=== PATIENT | female | born 1985 | race Caucasian/White ===

== ENCOUNTER 2017-03-12 18:09 | Emergency (ER) | payer SELFPAY ==
[~2017-03-12] VITALS: Ht 165.1 cm; Wt 130.8 kg
[2017-03-12 18:12] VITALS: BP 127/71
== END 2017-03-12 19:12 | disposition home or self-care (01) ==
LOC: ED 19:00
DX: H66.91 Otitis media, unspecified, right ear (principal)
CPT/HCPCS: 99283

== ENCOUNTER 2020-12-26 14:32 | Inpatient (IN) | payer OTHER ==
[2020-12-26] VITALS (8 sets, daily range): BP systolic 102–122; BP diastolic 49–74
[~2020-12-26] VITALS: Ht 165.1 cm; Wt 132.6 kg
--- NOTE | 2020-12-26 15:53 | NUR ---
certified coder: Pt ambulatory to room from lobby at this time.
[2020-12-26 15:57] LABS: BASOPHILS % (AUTO) 0 % (0-1); EOSINOPHILS % (AUTO) 0 % (1-7); LYMPHOCYTES % (AUTO) 21 % (22-44); MEAN CORPUSCULAR HEMOGLOBIN 16.6 pg (27.0-34.8); MEAN PLATELET VOLUME 6.3 fL (7.4-10.4); MONOCYTES % (AUTO) 5 % (2-9); NEUTROPHILS % (AUTO) 74 % (42-75); PLATELET COUNT 594 x10^3/uL (130-400); RED BLOOD COUNT 2.76 x10^6/uL (3.82-5.3); RED CELL DISTRIBUTION WIDTH 19.7 % (9.6-15.2)
[2020-12-26 16:06] LABS: ALBUMIN 2.5 g/dL (3.4-5.0); ANION GAP 4 mmol/L (5-15); CALCIUM 7.9 mg/dL (8.5-10.1); CHLORIDE 112 mmol/L (98-107)
[2020-12-26 16:07] LABS: CREATININE 0.89 mg/dL (0.55-1.02)
[2020-12-26 16:12] LABS: MEAN CORPUSCULAR HGB CONC 28.1 g/dL (32.4-35.8)
--- NOTE | 2020-12-26 16:15 | NUR ---
PT BIB FRIEND VIA POV D/T SOB WITH EXERTION & "CAN'T SMELL ANYTHING" X4 DAYS. PT STATES SHE HAS NOT BEEN VACCINATED FOR COVID. PT STATES HX OF ASTHMA AND SHE FEELS HER BREATHING HAS BEEN WORSE WITH THE SMOKE IN THE AREA. PT RESTING IN [facility], MONITORING IN PLACE, [facility] AT THIS TIME, TM.
[2020-12-26 16:33] LABS: ANISOCYTOSIS 1+; HYPOCHROMIA 2+; MICROCYTOSIS 2+; OVALOCYTES 1+; POLYCHROMASIA 1+
[2020-12-26 16:34] LABS: <PLATELET ESTIMATE> INCREASED; <PLT MORPHOLOGY> NORMAL PLT MORPH; TEAR DROPS 1+
[2020-12-26] MEDS ORDERED: PANTOPRAZOLE 40 MG IV IVPush ONE (17:00)
[2020-12-26] MEDS ORDERED: ONDANSETRON 2MG/ML, 2ML IVPush ONE (18:00)
[2020-12-26] MEDS ORDERED: MORPHINE SULFATE 4 MG/ML, 1ML IVPush PRN (18:00)
[2020-12-26 18:19] LABS: PROTHROMBIN TIME 10.7 Seconds (9.6-11.5)
[2020-12-26] MEDS ORDERED: PANTOPRAZOLE 40 MG IV ONE (18:27)
[2020-12-26] MEDS ORDERED: BISACODYL 10 MG SUPP PR PRN (19:30)
[2020-12-26] MEDS ORDERED: ONDANSETRON 2MG/ML, 2ML IVPush PRN (19:30)
[2020-12-26] MEDS ORDERED: ACETAMINOPHEN 325 MG TABLET PO PRN (19:30)
[2020-12-26] MEDS ORDERED: ONDANSETRON ODT 4 MG PO PRN (19:30)
[2020-12-26] MEDS ORDERED: POLYETHYLENE GLYCOL 17 GM PACKET PO PRN (19:30)
[2020-12-26] MEDS ORDERED: GUAIFENESIN/DM 200-20MG, 10ML UDC PO PRN (19:30)
[2020-12-26] MEDS ORDERED: MELATONIN 5 MG TABLET PO PRN (19:30)
[2020-12-26] MEDS ORDERED: hydrALAzine 20 MG/ML, 1ML IVPush PRN (19:30)
[2020-12-26] MEDS ORDERED: LORazepam 0.5MG TABLET PO PRN (20:00)
[2020-12-26] MEDS: PANTOPRAZOLE 40 MG IV IVPush SCH (20:38)
[2020-12-26 22:58] LABS: MICROSCOPIC INDICATED
[2020-12-27] VITALS (24 sets, daily range): BP systolic 101–134; BP diastolic 57–77
[2020-12-27 06:03] LABS: BASOPHILS % (AUTO) 1 % (0-1); EOSINOPHILS % (AUTO) 0 % (1-7); LYMPHOCYTES % (AUTO) 25 % (22-44); MEAN CORPUSCULAR HEMOGLOBIN 19.9 pg (27.0-34.8); MEAN CORPUSCULAR HGB CONC 30.1 g/dL (32.4-35.8); MEAN PLATELET VOLUME 6.2 fL (7.4-10.4); MONOCYTES % (AUTO) 5 % (2-9); NEUTROPHILS % (AUTO) 70 % (42-75); PLATELET COUNT 500 x10^3/uL (130-400); RED BLOOD COUNT 3.09 x10^6/uL (3.82-5.3); RED CELL DISTRIBUTION WIDTH 26.4 % (9.6-15.2)
[2020-12-27 06:16] LABS: CALCIUM 7.8 mg/dL (8.5-10.1); CHLORIDE 110 mmol/L (98-107)
[2020-12-27 06:29] LABS: ALANINE AMINOTRANSFERASE 12 U/L (12-78); ALBUMIN 2.3 g/dL (3.4-5.0); ALKALINE PHOSPHATASE 78 U/L (45-117); ANION GAP 5 mmol/L (5-15); BILIRUBIN,TOTAL 0.6 mg/dL (0.2-1.0); CHOL/HDL RATIO 3.7; CHOLESTEROL, TOTAL 100 mg/dL (140-239); CREATININE 0.55 mg/dL (0.55-1.02); HDL CHOL % 27 % (28-40); HDL CHOLESTEROL (DIRECT) 27 mg/dL (40-60); TOTAL PROTEIN 6.2 g/dL (6.4-8.2); TRIGLYCERIDES 151 mg/dL (50-200); VLDL CHOLESTEROL 30 mg/dL (0-25)
[2020-12-27 06:30] LABS: FREE T4 (FREE THYROXINE) 1.18 ng/dL (0.76-1.46); LDL CHOLESTEROL,CALCULATED 43 mg/dL (54-169); LDL/HDL RATIO 1.6 (0.5-3.0)
[2020-12-27 06:34] LABS: ANISOCYTOSIS 2+; MICROCYTOSIS 1+
[2020-12-27 06:35] LABS: <PLATELET ESTIMATE> INCREASED; <PLT MORPHOLOGY> NORMAL PLT MORPH; HYPOCHROMIA 2+; OVALOCYTES 2+
[2020-12-27] MEDS: PANTOPRAZOLE 40 MG IV IVPush SCH ×2 (07:30→22:13)
[2020-12-27] MEDS: SENNA/DOCUSATE TABLET PO SCH (08:54)
[2020-12-27] MEDS: CEFTRIAXONE 2 GM in DEXTROSE 5% 50 ML IVPB SCH (11:43)
[2020-12-27] MEDS ORDERED: MIDAZOLAM 1 MG/ML, 2ML ONE (12:27)
[2020-12-27] MEDS ORDERED: PROPOFOL 10 MG/ML, 20ML ONE (12:27)
[2020-12-27] MEDS ORDERED: SUCCINYLCHOLINE 20 MG/ML, 10ML ONE (12:27)
[2020-12-27] MEDS ORDERED: ONDANSETRON 2MG/ML, 2ML IVPush PRN (13:00)
[2020-12-27] MEDS ORDERED: FENTANYL PF 100 MCG/2ML IV PRN (13:00)
[2020-12-27] MEDS ORDERED: OXYcodone 5 MG/5 ML ORAL.SOL UDC PO PRN (13:00)
[2020-12-27 14:38] LABS: ANION GAP 4 mmol/L (5-15); CALCIUM 7.9 mg/dL (8.5-10.1); CHLORIDE 110 mmol/L (98-107); CREATININE 0.55 mg/dL (0.55-1.02)
[2020-12-27] MEDS ORDERED: OMNIPAQUE 350 MG/ML, 150 ML BOTTLE ONE (15:43)
[2020-12-27 15:58] LABS: OCCULT BLOOD POSITIVE (NEGATIVE)
[2020-12-27] MEDS ORDERED: DO NOT GIVE HEPARIN BOLUS MC PRN (17:00)
[2020-12-27] MEDS: FUROSEMIDE 20 MG/2 ML IV SCH ×2 (17:00→22:52)
[2020-12-27 17:24] LABS: D-DIMER 1.61 ug/mlFEU (0.00-0.52)
[2020-12-27] MEDS ORDERED: GLYCERIN ADULT SUPP PR ONE (17:30)
[2020-12-27] MEDS: ASCORBIC ACID 500 MG TABLET PO SCH ×2 (17:53→21:27)
[2020-12-27] MEDS: SUCRALFATE 1 GM TABLET PO SCH ×2 (17:53→21:28)
[2020-12-27] MEDS: HEPARIN 25,000 UNITS/250ML PMX 250 ML IV PRN (21:10)
[2020-12-27] MEDS: DOXYCYCLINE 100MG TABLET PO SCH (21:28)
[2020-12-27] MEDS: THIAMINE 100MG TABLET PO SCH (21:29)
[2020-12-27] MEDS: MELATONIN 5 MG TABLET PO SCH (21:31)
[2020-12-28] VITALS (9 sets, daily range): BP systolic 108–139; BP diastolic 71–84
[2020-12-28 04:29] LABS: BASOPHILS % (AUTO) 0 % (0-1); EOSINOPHILS % (AUTO) 0 % (1-7); LYMPHOCYTES % (AUTO) 28 % (22-44); MEAN CORPUSCULAR HEMOGLOBIN 22.6 pg (27.0-34.8); MEAN CORPUSCULAR HGB CONC 31.9 g/dL (32.4-35.8); MEAN PLATELET VOLUME 6.2 fL (7.4-10.4); MONOCYTES % (AUTO) 6 % (2-9); NEUTROPHILS % (AUTO) 66 % (42-75); PLATELET COUNT 435 x10^3/uL (130-400); RED BLOOD COUNT 4.38 x10^6/uL (3.82-5.3); RED CELL DISTRIBUTION WIDTH 28.3 % (9.6-15.2)
[2020-12-28 04:30] LABS: HCT (SEDRATE) 30.3 % (34.6-47.8)
[2020-12-28 04:46] LABS: C-REACTIVE PROTEIN, QUANT 1.8 mg/dL (0.02-0.49)
[2020-12-28] MEDS: FUROSEMIDE 20 MG/2 ML IV SCH (05:59)
[2020-12-28] MEDS: SUCRALFATE 1 GM TABLET PO SCH ×4 (05:59→21:05)
[2020-12-28] MEDS ORDERED: REMDESIVIR 200 MG in SODIUM CHLORIDE 0.9% 250 ML IVPB ONE (06:30)
[2020-12-28] MEDS: DEXAMETHASONE 4 MG/ML, 1ML IVPush SCH (08:20)
[2020-12-28] MEDS: PANTOPRAZOLE 40 MG IV IVPush SCH ×2 (08:20→21:05)
[2020-12-28] MEDS: SENNA/DOCUSATE TABLET PO SCH (08:20)
[2020-12-28] MEDS: CHOLECALCIFEROL 1,000 UNIT TABLET PO SCH (08:21)
[2020-12-28] MEDS: THIAMINE 100MG TABLET PO SCH ×2 (08:21→21:05)
[2020-12-28] MEDS: ZINC SULFATE 220 MG CAPSULE PO SCH (08:21)
[2020-12-28] MEDS: DOXYCYCLINE 100MG TABLET PO SCH ×2 (08:21→21:05)
[2020-12-28] MEDS: ASCORBIC ACID 500 MG TABLET PO SCH ×3 (08:21→21:05)
[2020-12-28] MEDS: CEFTRIAXONE 2 GM in DEXTROSE 5% 50 ML IVPB SCH (11:55)
[2020-12-28 19:29] LABS: OCCULT BLOOD NEGATIVE (NEGATIVE)
[2020-12-28] MEDS: MELATONIN 5 MG TABLET PO SCH (21:05)
[2020-12-28] MEDS: HEPARIN 25,000 UNITS/250ML PMX 250 ML IV PRN (21:25)
[2020-12-29 01:19] VITALS: BP 118/76
[2020-12-29 02:50] LABS: ALBUMIN 2.4 g/dL (3.4-5.0); BASOPHILS % (AUTO) 0 % (0-1); CHLORIDE 108 mmol/L (98-107); EOSINOPHILS % (AUTO) 0 % (1-7); LYMPHOCYTES % (AUTO) 22 % (22-44); MEAN CORPUSCULAR HEMOGLOBIN 22.8 pg (27.0-34.8); MEAN PLATELET VOLUME 6.7 fL (7.4-10.4); MONOCYTES % (AUTO) 6 % (2-9); NEUTROPHILS % (AUTO) 71 % (42-75); PLATELET COUNT 474 x10^3/uL (130-400); RED BLOOD COUNT 4.37 x10^6/uL (3.82-5.3); RED CELL DISTRIBUTION WIDTH 28.3 % (9.6-15.2)
[2020-12-29 02:53] LABS: ALANINE AMINOTRANSFERASE 16 U/L (12-78); ALKALINE PHOSPHATASE 105 U/L (45-117); ANION GAP 8 mmol/L (5-15); BILIRUBIN,TOTAL 0.5 mg/dL (0.2-1.0); CALCIUM 8.2 mg/dL (8.5-10.1); TOTAL PROTEIN 7.2 g/dL (6.4-8.2)
[2020-12-29 02:54] LABS: D-DIMER 1.81 ug/mlFEU (0.00-0.52); INTERNATIONAL NORMALIZED RATIO 1.02 (0.93-1.1); PROTHROMBIN TIME 10.9 Seconds (9.6-11.5)
[2020-12-29 03:22] LABS: ANISOCYTOSIS 1+; MICROCYTOSIS 1+
[2020-12-29 03:23] LABS: <PLATELET ESTIMATE> INCREASED; <PLT MORPHOLOGY> NORMAL PLT MORPH; HYPOCHROMIA 2+; OVALOCYTES 2+
[2020-12-29] MEDS: SUCRALFATE 1 GM TABLET PO SCH ×4 (07:22→21:26)
[2020-12-29] MEDS: REMDESIVIR 100 MG in SODIUM CHLORIDE 0.9% 250 ML IVPB SCH (07:22)
[2020-12-29 08:44] VITALS: BP 116/75
[2020-12-29] MEDS: PANTOPRAZOLE 40 MG IV IVPush SCH ×2 (09:01→21:27)
[2020-12-29] MEDS: ZINC SULFATE 220 MG CAPSULE PO SCH (09:01)
[2020-12-29] MEDS: DEXAMETHASONE 4 MG/ML, 1ML IVPush SCH (09:01)
[2020-12-29] MEDS: ASCORBIC ACID 500 MG TABLET PO SCH ×3 (09:01→21:26)
[2020-12-29] MEDS: SENNA/DOCUSATE TABLET PO SCH (09:02)
[2020-12-29] MEDS: THIAMINE 100MG TABLET PO SCH ×2 (09:02→21:26)
[2020-12-29] MEDS: DOXYCYCLINE 100MG TABLET PO SCH ×2 (09:02→21:26)
[2020-12-29] MEDS: CHOLECALCIFEROL 1,000 UNIT TABLET PO SCH (09:02)
[2020-12-29] MEDS: CEFTRIAXONE 2 GM in DEXTROSE 5% 50 ML IVPB SCH (11:21)
[2020-12-29] MEDS: HEPARIN 25,000 UNITS/250ML PMX 250 ML IV PRN ×2 (12:19→23:01)
[2020-12-29 13:22] VITALS: BP 127/81
[2020-12-29 20:19] VITALS: BP 117/76
[2020-12-29 21:07] LABS: OCCULT BLOOD NEGATIVE (NEGATIVE)
[2020-12-29] MEDS: MELATONIN 5 MG TABLET PO SCH (21:26)
[2020-12-30 01:22] VITALS: BP 122/78
[2020-12-30] MEDS: SUCRALFATE 1 GM TABLET PO SCH ×4 (06:22→20:24)
[2020-12-30] MEDS: REMDESIVIR 100 MG in SODIUM CHLORIDE 0.9% 250 ML IVPB SCH (06:22)
[2020-12-30 06:37] VITALS: BP 101/65
[2020-12-30 06:45] LABS: ALBUMIN 2.2 g/dL (3.4-5.0); ANION GAP 5 mmol/L (5-15); CALCIUM 8.3 mg/dL (8.5-10.1); CHLORIDE 111 mmol/L (98-107)
[2020-12-30 06:48] LABS: ALANINE AMINOTRANSFERASE 16 U/L (12-78); ALKALINE PHOSPHATASE 98 U/L (45-117); BILIRUBIN,TOTAL 0.4 mg/dL (0.2-1.0); CREATININE 0.54 mg/dL (0.55-1.02); TOTAL PROTEIN 6.3 g/dL (6.4-8.2)
[2020-12-30 07:35] LABS: BASOPHILS % (AUTO) 0 % (0-1); EOSINOPHILS % (AUTO) 0 % (1-7); LYMPHOCYTES % (AUTO) 32 % (22-44); MEAN CORPUSCULAR HEMOGLOBIN 23.1 pg (27.0-34.8); MEAN CORPUSCULAR HGB CONC 31.7 g/dL (32.4-35.8); MEAN PLATELET VOLUME 6.9 fL (7.4-10.4); MONOCYTES % (AUTO) 8 % (2-9); NEUTROPHILS % (AUTO) 60 % (42-75); PLATELET COUNT 501 x10^3/uL (130-400); RED CELL DISTRIBUTION WIDTH 28.7 % (9.6-15.2)
[2020-12-30 07:42] LABS: HCT (SEDRATE) 29.9 % (34.6-47.8)
[2020-12-30] MEDS: SENNA/DOCUSATE TABLET PO SCH (09:00)
[2020-12-30] MEDS: ASCORBIC ACID 500 MG TABLET PO SCH ×3 (09:19→20:25)
[2020-12-30] MEDS: PANTOPRAZOLE 40 MG IV IVPush SCH ×2 (09:19→20:25)
[2020-12-30] MEDS: DEXAMETHASONE 4 MG/ML, 1ML IVPush SCH (09:19)
[2020-12-30] MEDS: CHOLECALCIFEROL 1,000 UNIT TABLET PO SCH (09:20)
[2020-12-30] MEDS: THIAMINE 100MG TABLET PO SCH ×2 (09:20→20:24)
[2020-12-30] MEDS: DOXYCYCLINE 100MG TABLET PO SCH ×2 (09:20→20:24)
[2020-12-30] MEDS: ZINC SULFATE 220 MG CAPSULE PO SCH (09:20)
[2020-12-30] MEDS: APIXABAN 5 MG TABLET PO SCH ×2 (11:50→20:24)
[2020-12-30] MEDS: CEFTRIAXONE 2 GM in DEXTROSE 5% 50 ML IVPB SCH (11:50)
[2020-12-30 14:00] VITALS: BP 113/73
[2020-12-30 20:10] VITALS: BP 113/65
[2020-12-30] MEDS: MELATONIN 5 MG TABLET PO SCH (20:25)
[2020-12-31 00:09] VITALS: BP 121/71
[2020-12-31 05:45] LABS: HCT (SEDRATE) 31.9 % (34.6-47.8)
[2020-12-31 05:57] LABS: ALBUMIN 2.3 g/dL (3.4-5.0); ANION GAP 6 mmol/L (5-15); BASOPHILS % (AUTO) 1 % (0-1); C-REACTIVE PROTEIN, QUANT 0.45 mg/dL (0.02-0.49); CALCIUM 8.6 mg/dL (8.5-10.1); CHLORIDE 112 mmol/L (98-107); EOSINOPHILS % (AUTO) 2 % (1-7); LYMPHOCYTES % (AUTO) 28 % (22-44); MEAN CORPUSCULAR HEMOGLOBIN 22.5 pg (27.0-34.8); MEAN CORPUSCULAR HGB CONC 30.6 g/dL (32.4-35.8); MEAN PLATELET VOLUME 6.6 fL (7.4-10.4); MONOCYTES % (AUTO) 7 % (2-9); NEUTROPHILS % (AUTO) 62 % (42-75); PLATELET COUNT 499 x10^3/uL (130-400); RED BLOOD COUNT 4.39 x10^6/uL (3.82-5.3)
[2020-12-31 06:01] LABS: ALANINE AMINOTRANSFERASE 21 U/L (12-78); ALKALINE PHOSPHATASE 98 U/L (45-117); BILIRUBIN,TOTAL 0.4 mg/dL (0.2-1.0); TOTAL PROTEIN 6.5 g/dL (6.4-8.2)
[2020-12-31] MEDS: REMDESIVIR 100 MG in SODIUM CHLORIDE 0.9% 250 ML IVPB SCH (06:28)
[2020-12-31] MEDS: SUCRALFATE 1 GM TABLET PO SCH ×4 (06:28→21:54)
[2020-12-31 07:06] VITALS: BP 124/79
[2020-12-31] MEDS: DEXAMETHASONE 4 MG/ML, 1ML IVPush SCH (08:57)
[2020-12-31] MEDS: CHOLECALCIFEROL 1,000 UNIT TABLET PO SCH (08:58)
[2020-12-31] MEDS: APIXABAN 5 MG TABLET PO SCH ×2 (08:58→21:53)
[2020-12-31] MEDS: PANTOPRAZOLE 40 MG IV IVPush SCH ×2 (08:58→21:53)
[2020-12-31] MEDS: ASCORBIC ACID 500 MG TABLET PO SCH ×3 (08:58→21:54)
[2020-12-31] MEDS: DOXYCYCLINE 100MG TABLET PO SCH ×2 (08:58→21:54)
[2020-12-31] MEDS: THIAMINE 100MG TABLET PO SCH ×2 (08:58→21:54)
[2020-12-31] MEDS: ZINC SULFATE 220 MG CAPSULE PO SCH (08:58)
[2020-12-31] MEDS: SENNA/DOCUSATE TABLET PO SCH (08:59)
[2020-12-31] MEDS: CEFTRIAXONE 2 GM in DEXTROSE 5% 50 ML IVPB SCH (12:15)
[2020-12-31 15:58] VITALS: BP 112/70
[2020-12-31] MEDS: MELATONIN 5 MG TABLET PO SCH (21:00)
[2020-12-31 21:48] VITALS: BP 116/73
[2021-01-01 00:01] VITALS: BP 112/69
[2021-01-01 05:48] LABS: ALBUMIN 2.5 g/dL (3.4-5.0); ANION GAP 8 mmol/L (5-15); CHLORIDE 109 mmol/L (98-107)
[2021-01-01 05:53] LABS: ALANINE AMINOTRANSFERASE 51 U/L (12-78); ALKALINE PHOSPHATASE 111 U/L (45-117); BILIRUBIN,TOTAL 0.5 mg/dL (0.2-1.0); CREATININE 0.58 mg/dL (0.55-1.02); TOTAL PROTEIN 6.7 g/dL (6.4-8.2)
[2021-01-01] MEDS: REMDESIVIR 100 MG in SODIUM CHLORIDE 0.9% 250 ML IVPB SCH (06:38)
[2021-01-01] MEDS: SUCRALFATE 1 GM TABLET PO SCH ×2 (06:38→11:40)
[2021-01-01 06:39] VITALS: BP 107/70
[2021-01-01 07:54] LABS: BASOPHILS % (AUTO) 1 % (0-1); EOSINOPHILS % (AUTO) 0 % (1-7); LYMPHOCYTES % (AUTO) 27 % (22-44); MEAN CORPUSCULAR HEMOGLOBIN 22.3 pg (27.0-34.8); MONOCYTES % (AUTO) 7 % (2-9); NEUTROPHILS % (AUTO) 65 % (42-75); PLATELET COUNT 627 x10^3/uL (130-400); RED BLOOD COUNT 4.71 x10^6/uL (3.82-5.3); RED CELL DISTRIBUTION WIDTH 28.6 % (9.6-15.2)
[2021-01-01 08:29] VITALS: BP 137/84
[2021-01-01 08:40] VITALS: BP 106/70
[2021-01-01] MEDS: SENNA/DOCUSATE TABLET PO SCH (09:00)
[2021-01-01] MEDS: APIXABAN 5 MG TABLET PO SCH (09:25)
[2021-01-01] MEDS: THIAMINE 100MG TABLET PO SCH (09:26)
[2021-01-01] MEDS: ASCORBIC ACID 500 MG TABLET PO SCH (09:26)
[2021-01-01] MEDS: DOXYCYCLINE 100MG TABLET PO SCH (09:26)
[2021-01-01] MEDS: PANTOPRAZOLE 40 MG IV IVPush SCH (09:30)
[2021-01-01] MEDS: ZINC SULFATE 220 MG CAPSULE PO SCH (09:30)
[2021-01-01] MEDS: CHOLECALCIFEROL 1,000 UNIT TABLET PO SCH (09:30)
[2021-01-01] MEDS: DEXAMETHASONE 4 MG/ML, 1ML IVPush SCH (09:30)
[2021-01-01] MEDS: CEFTRIAXONE 2 GM in DEXTROSE 5% 50 ML IVPB SCH (11:41)
[2021-01-01] MEDS ORDERED: DOXY100T PO (11:45)
[2021-01-01] MEDS ORDERED: APIX5TAB PO (11:45)
[2021-01-01] MEDS ORDERED: THIA100T67 PO (11:45)
[2021-01-01] MEDS ORDERED: SUCR1TAB33 PO (11:45)
[2021-01-01] MEDS ORDERED: CHOL10003 PO (11:45)
[2021-01-01] MEDS ORDERED: ASCO500T9 PO (11:45)
[2021-01-01] MEDS ORDERED: CEFD300C37 PO (11:46)
[2021-01-01 13:05] VITALS: BP 111/68
[2021-01-01] MEDS ORDERED: PANT40TA6 PO (13:26)
== END 2021-01-01 13:58 | disposition home or self-care (01) | DRG 177 ==
LOC: ED 17:17 → EDIP 17:41 → 5SO 19:39
PROVIDERS: ADMIT Internal Medicine; ATTEND Hospitalist
PROC: 30233N1 Transfusion of Nonautologous Red Blood Cells into Peripheral Vein, Percutaneous Approach (ICD-10-PCS; 2020-12-26)
PROC: 0DB68ZX Excision of Stomach, Via Natural or Artificial Opening Endoscopic, Diagnostic (ICD-10-PCS; 2020-12-27)
PROC: 0DB98ZX Excision of Duodenum, Via Natural or Artificial Opening Endoscopic, Diagnostic (ICD-10-PCS; principal; 2020-12-27 11:30)
PROC: XW033E5 Introduction of Remdesivir Anti-infective into Peripheral Vein, Percutaneous Approach, New Technology Group 5 (ICD-10-PCS; 2020-12-29)
DX: U07.1 COVID-19 (principal); K25.4 Chronic or unspecified gastric ulcer with hemorrhage; J12.82 Pneumonia due to coronavirus disease 2019; I26.99 Other pulmonary embolism without acute cor pulmonale; D62 Acute posthemorrhagic anemia; I38 Endocarditis, valve unspecified; K90.0 Celiac disease; E55.9 Vitamin D deficiency, unspecified; E28.2 Polycystic ovarian syndrome; E66.9 Obesity, unspecified; J45.909 Unspecified asthma, uncomplicated; R09.02 Hypoxemia; R13.10 Dysphagia, unspecified; E88.09 Other disorders of plasma-protein metabolism, not elsewhere classified; F17.210 Nicotine dependence, cigarettes, uncomplicated; R12 Heartburn; K44.9 Diaphragmatic hernia without obstruction or gangrene; R60.9 Edema, unspecified; I27.20 Pulmonary hypertension, unspecified; D50.9 Iron deficiency anemia, unspecified; Z56.0 Unemployment, unspecified
CPT/HCPCS: 36415; 36430; 71045; 71275; 80048; 80053; 80061; 81001; 81025; 82040; 82272; 82306; 82607; 82728; 83036; 83540; 83550; 83615; 83735; 83880; 84100; 84145; 84439; 84443; 84466; 84481; 85018; 85025; 85379; 85384; 85520; 85610; 85651; 85730; 86140; 86850; 86900; 86923; 87040; 87086; 87635; 88305; 93005; 93306; 93970; 96374; G0378; J0696; J1100; J2250; J2704; Q9967; C9113; J0330; J1940; J7050; P9016